=== PATIENT | male | born 1960 | race Caucasian/White ===

== ENCOUNTER → 2016-09-10 | Outpatient (CLI) | payer OTHER ==
[~2016-09-10] VITALS: Ht 185.4 cm; Wt 117.9 kg
[~2016-09-10] MED LIST: ASPIR 8181 MG PO; CO Q-10100 MG PO; LIPITOR80 MG PO; NABUMETONE 750750 M1 PO; NORCO 5-325 TA1 EACH PO
--- NOTE | ~2016-09-10 | HPC ---
[facility] [place] [address] PAIN MANAGEMENT CONSULTATION Name: SELWYN COLE Room #: REG [facility]Tr[facility] [id number] Admission: 09/10/16 Attend Phys: Chaim Conley DO Discharge: Date of : 60 Report #: [id number] THIS REPORT FOR: //name// CC: Mark Conley SUBJECTIVE: The patient is a 55-year-old gentleman who is seen in consultation at request of Dr. Jadon Pyle for evaluation and consideration for lumbar epidural injection. The patient notes he was in his usual state of health when sometime in June 2015, was pulling hot water here at work and developed low back pain with neck pain as well. Low back pain radiating into the anterior as well as posterior thigh. Over time, it became more constraint to the low back and right anterior thigh. Radicular symptoms include pain in the neck, left arm, into the thumb, index and middle fingers. He has been seen by Dr. Pyle for an independent medical exam, referred to me for consideration for lumbar epidural injection. Although Dr. Pyle' request on 07/30/2016, notes "Most likely recommendation following this would be for the point made for the patient to undergo further physical therapy directed both cervical and lumbar spine as well as cervical and lumbar epidurals." The patient tells me that Dr. Pyle has suggested they move forward with a cervical decompression. Hence today, we are evaluating simply low back, buttock, and right leg. The patient notes subjective weakness in the right thigh. Denies saddle anesthesia or bowel or bladder continence changes. He does take dynx-fow-eueyuys anti-inflammatory medications. Completed physical therapy in November with nominal efficacy per the patient. Rates pain anywhere from 6-10 on a 0-10 visual analog scale, seems to be exacerbated with activity. "Nothing" makes it better. He describes continuous, steady, constant, burning, gnawing, throbbing pain. REVIEW OF SYSTEMS: Complete review of systems attached to chart and gone over with the patient. He is . Smokes which he has for 20 years, currently less than half pack a day. Drinks alcohol socially. History of coronary artery disease status post angioplasty in 1993. He has had no stents placed, takes an aspirin daily. History of colon resection in 2001 for diverticulitis. Colon issues have been relatively quiescent since. Dyslipidemia for which he takes atorvastatin. Right knee arthroscopy in 2005. The patient had worked in building operations. He has been unemployed since 12/2015. He is currently in the process of trying to obtain disability benefits. Pain impact score is fairly high, averaging about 6.1 for all indices queried. [address] [address] PAIN MANAGEMENT CONSULTATION Name: DOUGLASSELWYNRENAE CALVIN Room #: REG ANGI Munoz#: [id number] Admission: 09/10/16 Attend Phys: Chaim Conley DO Discharge: Date of : 60 Report #: [id number] PHYSICAL EXAMINATION: GENERAL: A 6 foot 1 inch, 250 pound gentleman, BMI is 34.43 kilograms per meter squared, blood pressure 148/91, pulse 102, respirations 16, and room air oxygen saturation is 95%. NEUROLOGIC: Cranial 2-12 are grossly intact. Pupils equal, reactive to light and accommodation. Extraocular muscles are intact. Thyroid is modestly enlarged, no nodules are noted. Modestly positive limits. Upper extremity strength is symmetric. Deep tendon reflexes, biceps, triceps, brachioradialis are 0-1/4 and symmetric. HEART: Regular rhythmical without murmur. LUNGS: Some scattered rhonchi. Breath sounds are little bit distant. EXTREMITIES: He has an endomorphic build. Rises from chair using armrest. Gait is tandem, but he is unable to walk on his right heel. Lumbar flexion is good, 90 degrees. Tender over the right SI. Lower extremity strength shows slight diminution, right hip flexion and lower extremity extension strength compared to the left. Patellar reflex 0-1/4 and symmetric. Straight leg raise is positive at 30 degrees on the right. JAIRO test is negative. SKIN AND INTEGUMENT: Intact. DIAGNOSTIC STUDIES: Referred to Dr. Pyle' note, include 10/2015, MRI showing broad-based disk bulges at L3-L4 and L4-L5 causing stenosis at both levels. ASSESSMENT: 1. Symptomatic lumbar radiculopathy by clinical exam and correlated with history. 2. Cervical radiculopathy by history. 3. Exogenous obesity. BMI is 34.3 kilograms per meter squared. 4. Nicotine habituation. RECOMMENDATIONS: 1. Discontinue nicotine. 2. Discontinue hdxd-uvn-sqphsfu anti-inflammatories. We will start nabumetone 750 b.i.d. 3. Fluoroscopic-guided lumbar epidural injection today. 4. Follow up in 2 weeks for reevaluation. Thank you for allowing me to participate in the patient's care. I will keep you abreast of his progress. PROCEDURE: Lumbar epidural injection under fluoroscopy. PROCEDURE NOTE: After both written and informed consent to include risk of spinal cord damage, increased pain, weakness and dural puncture, the patient was taken to the fluoroscopy suite, placed in the prone position. After sterile prep and drape, a skin wheal with lidocaine was raised. A 22-gauge epidural Tuohy needle was inserted in the midline at L4-5 with good loss to resistance. [facility] [address] [place] [address] PAIN MANAGEMENT CONSULTATION Name: DOUGLASSELWYN MARIXA Room #: REG ANGI Munoz#: [id number] Admission: 09/10/16 Attend Phys: Chaim Conley DO Discharge: Date of : 60 Report #: [id number] Negative aspiration for cerebrospinal fluid or blood was noted. Then 1 mL of Omnipaque under biplanar fluoroscopy showed good spread within the epidural space. This was followed with 80 mg of triamcinolone plus 1 mL of 1.5% preservative-free Xylocaine, 0.5 mL Xylocaine was then injected to flush the needle; it was removed. The patient was monitored for an appropriate period of time and discharged in good and stable condition. <ELECTRONICALLY SIGNED> By: Chaim Conley DO 09/13/16 1228 [id number] [id number] Chaim Conley DO /nt
[2016-09-10 13:21] VITALS: BP 148/91
== END | disposition home or self-care (01) ==
LOC: PAIN 07:03
DX: M54.16 Radiculopathy, lumbar region (principal); M54.12 Radiculopathy, cervical region; E66.09 Other obesity due to excess calories; Z68.34 Body mass index [BMI] 34.0-34.9, adult; F17.200 Nicotine dependence, unspecified, uncomplicated; I25.10 Atherosclerotic heart disease of native coronary artery without angina pectoris; E78.5 Hyperlipidemia, unspecified

== ENCOUNTER → 2016-10-11 | Outpatient (CLI) | payer OTHER ==
[~2016-10-11] VITALS: Ht 185.4 cm; Wt 120.4 kg
--- NOTE | ~2016-10-11 | HPC ---
[facility] [place] [address] PAIN MANAGEMENT CONSULTATION Name: DOUGLASSELWYN MARIXA Room #: REG [facility]ITALTrina.#: [id number] Admission: 10/11/16 Attend Phys: Chaim Conley DO Discharge: Date of : 60 Report #: [id number] THIS REPORT FOR: //name// CC: Mark Conley DATE OF SERVICE: 10/11/2016 The patient is a pleasant 56-year-old gentleman originally seen in consultation 09/10/2016, requested by Dr. Pyle for consideration for epidural injection. The patient noted he was in his usual state of good health when in June of 2015 while pulling a hot water heater tank out, he developed acute back and some neck pain as well. Pain in the low back has continued to be problematic with pain radiating into the posterior thigh. Some radicular symptoms in left neck, shoulder, and arm though the patient's primary concern has been his back and leg. Subjective weakness in the right thigh. Does take some xaqb-rkl-ristsju nonsteroidal anti-inflammatory medications. PHYSICAL EXAMINATION: At that time noted endomorphic build, unable to walk on his right heel (right dorsiflexion strength limited), tender over the right SI. Straight leg raise positive 30 degrees on the right. DIAGNOSTIC STUDIES: MRI from 10/2015 by reports noted stenosis at L4-L5 and L3-L4. The patient was given a single epidural injection at L4-L5 09/10/2016, followed up 09/24/2016. The patient noted that the paresthesia in the thigh had gotten better. Axial back pain was somewhat improved, still some ongoing weakness in the right leg. Physical examination was otherwise relatively unchanged. I proceeded with a right L4-L5 transforaminal epidural injection at that time. Returns to pain clinic today noting no dramatic relief following the transforaminal injection, midline injection afforded better relief. It still is ongoing symptoms, had impact function. Diminished dorsiflexion on the right side and some paresthesia in the right L3 and L4 distribution. ASSESSMENT: Symptomatic lumbar radiculopathy. RECOMMENDATIONS: 1. I have taken the liberty of writing prescription for hydrocodone 5/325, dispense 60 tablets, 1 tablet up to 4 times a day. The patient cautioned about daytime somnolence, mental acuity changes, constipation. 2. We will repeat epidural injection under fluoroscopy today back to midline L4-L5 but strongly recommend the patient follow up [place] [address] PAIN MANAGEMENT CONSULTATION Name: SELWYN COLE MARIXA Room #: REG CL Alexander#: [id number] Admission: 10/11/16 Attend Phys: Chaim Conley DO Discharge: Date of : 60 Report #: [id number] consideration for more definitive intervention. He has had transient relief of the injections, but symptoms continued to be problematic and he still has some ongoing weakness with right anterior tibialis weakness. Thanks for allowing me to participate in the patient's care. PROCEDURE: Lumbar epidural injection under fluoroscopy. PROCEDURE NOTE: After both written and informed consent to include risk of spinal cord damage, increased pain, weakness and dural puncture, the patient was taken to the fluoroscopy suite, placed in the prone position. After sterile prep and drape, a skin wheal with lidocaine was raised. A 22-gauge epidural Tuohy needle was inserted in the midline at L4-L5 with good loss to resistance. Negative aspiration for cerebrospinal fluid or blood was noted. Then 1 mL of Omnipaque under biplanar fluoroscopy showed good spread within the epidural space. This was followed with 80 mg of triamcinolone plus 1 mL of 1.5% preservative-free Xylocaine, 0.5 mL Xylocaine was then injected to flush the needle; it was removed. The patient was monitored for an appropriate period of time and discharged in good and stable condition. <ELECTRONICALLY SIGNED> By: Chaim Conley DO 10/13/16 1105 [id number] 1237 Chaim Conley DO /nt
[2016-10-11 08:55] VITALS: BP 147/96
== END | disposition home or self-care (01) ==
LOC: PAIN 10-08 15:21
DX: M54.16 Radiculopathy, lumbar region (principal); F17.210 Nicotine dependence, cigarettes, uncomplicated